=== PATIENT | male | born 1945 | race Caucasian/White ===

== ENCOUNTER 2017-08-27 09:55 | Emergency (ER) | payer SELFPAY, MEDICARE ==
[2017-08-27] MEDS: EPINEPHrine 1MG/10ML SYRINGE 1.5IN IV (09:57)
[2017-08-27] MEDS: SODIUM BICARBONATE 8.4% INJ 50 ML SYRINGE IV (09:59)
[2017-08-27] MEDS ORDERED: SODIUM BICARBONATE 8.4% INJ 50MEQ 50 ML VIAL (10:40)
[2017-08-27] MEDS ORDERED: EPINEPHrine 1MG/10ML SYRINGE 1.5IN (10:40)
== END 2017-08-27 14:50 | disposition expired ==
LOC: M ED 09:55
DX: I46.9 Cardiac arrest, cause unspecified (principal); I10 Essential (primary) hypertension; K21.9 Gastro-esophageal reflux disease without esophagitis; E66.9 Obesity, unspecified; Z79.899 Other long term (current) drug therapy
CPT/HCPCS: 31500